=== PATIENT | male | born 1985 | race Caucasian/White ===

== ENCOUNTER 2021-11-25 01:01 | Outpatient (CLI) | payer MEDICAID, SELFPAY ==
[2021-11-25 14:46] LABS: Abs Immature Grans 0.03 10^3/uL (0.0-0.06); Absolute Basophil Count 0.03 10^3/uL (0.0-0.2); Absolute Eosinophil Count 0.33 10^3/uL (0.0-0.7); Absolute Lymphocyte Count 2.19 10^3/uL (1.2-3.4); Absolute Monocyte Count 0.42 10^3/uL (0.1-0.8); Absolute Neutrophil Count 4.61 10^3/uL (1.2-6.7); Basophils % 0.4; Eosinophils % 4.3; HCT 39.5 % (40.0-50.0); HGB 12.9 g/dL (13.5-17.5); Immature Grans % 0.4; Lymphocytes % 28.8; MCH 27.8 pg (27.0-33.0); MCHC 32.7 % (32.0-36.0); MCV 85 fL (80-95); MPV 8.6 fL (8.0-11.0); Monocytes % 5.5; Neutrophils % 60.6; Platelet Count 225 10^3/uL (130-400); RBC 4.64 10^6/uL (4.36-5.78); RDW 13.1 % (11.8-14.1); RDW-SD 40.4 fL; WBC 7.61 10^3/uL (4.4-10.8)
[2021-11-25 16:25] LABS: ALT 30 U/L (16-63); AST 17 U/L (15-37); Albumin 3.4 g/dL (3.4-5.0); Alkaline Phosphatase 71 U/L (46-116); Anion Gap 6.2 mmol/L (3-11); BUN 16 mg/dL (7-18); Bilirubin, Total 0.2 mg/dL (0.2-1.0); CO2 32.8 mmol/L (21.0-32.0); CREATININE 0.9 mg/dL (0.70-1.30); Calcium 8.7 mg/dL (8.5-10.1); Chloride 99 mmol/L (98-107); GGT 37 U/L (15-85); Glucose 108 mg/dL (74-106); Potassium 3.8 mmol/L (3.5-5.1); Sodium 138 mmol/L (136-145); Total Protein 7.7 g/dL (6.4-8.2)
[2021-11-25 16:41] LABS: Calculated LDL 117 mg/dL (<100); Cholesterol 192 mg/dL (<200); HDL Cholesterol 49 mg/dL (40-60); Triglyceride 134 mg/dL (<150)
[2021-11-26 08:50] LABS: Hepatitis B Surface Ab Positive (See Note)
[2021-11-26 08:57] LABS: Hepatitis B Surface Ag Negative (Negative)
[2021-11-26 09:32] LABS: HIV-1/2 Ag & Ab Screen Negative (Negative)
[2021-11-26 09:43] LABS: Hep B Core Antibody Negative (Negative)
[2021-11-26 09:49] LABS: Hepatitis C Ab w Rflx HCV PCR Negative (Negative)
[2021-11-26 10:07] LABS: Hep A Total Ab w Rflx IgM Negative (Negative)
== END 2021-11-25 01:02 | disposition home or self-care (01) ==
LOC: LBO 01:01
PROVIDERS: PCP Family Medicine; Visit Provider Nurse Practitioner Gerontology
DX: E78.9 Disorder of lipoprotein metabolism, unspecified; I10 Essential (primary) hypertension; E66.01 Morbid (severe) obesity due to excess calories; Z11.59 Encounter for screening for other viral diseases; Z11.4 Encounter for screening for human immunodeficiency virus [HIV]
CPT/HCPCS: 36415; 80053; 80061; 86704; 86706; 86709; 86803; 87340; 87389; 82977; 84443; 85025

== ENCOUNTER → 2021-11-28 00:42 | Outpatient (CLI) | payer MEDICAID, SELFPAY ==
--- OUTSIDE RECORDS SUMMARY | 2021-11-28 00:48 | XMS_ITS | Encounter Summary ---
:1985 Author Organization [facility] Address [address] [place] [address] Care Team Providers Name Role Phone Poly Gasca DNP Primary Care Provider Reason for Visit Reason Comments New Patient Visit leg ulcers pain previous DVT s venous instuff US first Consult (3 - 10 Business Days) - Specialty Report Received Specialty Diagnoses / Procedures Referred By Contact Refer red To Contact Vascular Surgery Diagnoses Cellulitis of both lower extremities Chronic venous stasis Poly Gasca, CHRISTIAN Mp5 Vas Surgery [address] [place] [address] [address] [facility] [address] [place], [place] [address] [place] [phone] Referral ID Status Reason Start Expiration Visits Visits Date Date Requested Authorized [id number] Specialty Specialty 11/08/2020 1 1 Report Services Received Required Encounter Details Date Type Department Care Team Description 01/31/2021 Office Visit [facility] Biju Bazzi III, Peter mai venous Vascular Surgery - insufficiency (Primary Main [place] [address] [facility]) [address] [place], [place] [id number] [place] [address] [facility] [address] [place] [address] (Wo rk) Social History Tobacco Use Types Packs/Day Years Used Date Current Every Day Smoker 1 26 Smokeless Tobacco: Never Used Alcohol Use Standard Drinks/Week Comments Not Currently 0 (1 standard drink = 0.6 oz pure alcoho l) Sex Assigned at Date Recorded Not on file documented as of this encounter Last Filed Vital Signs Vital Sign Reading Time Taken Comments Blood Pressure 150/90 01/31/2021 1106 EDT left Pulse 89 01/31/2021 1106 EDT Temperature - - Respiratory Rate - - Oxygen Saturation 98% 01/31/2021 1106 EDT Inhaled Oxygen Concentration - - Weight - - Height - - Body Mass Index - - documented in this encounter Progress Notes Makenna Natarajan - 01/31/2021 1100 EDT Vascular Surgery Consult Reason for consultation: Venous insufficiency HPI: Mr. Bojorquez is a 35-year-old gentleman who was referred to vascular surgery for evaluation of his bilateral chronic venous insufficiency. He has a past medical history notable for morbid morbid obesity,history of opioid use (clean for 5 years and on methadone), and tobacco use (approximately 1 pack/day for 26 years). His past surgical history is only notable for an open appendectomy as a child. He recently moved here from [facility]. He says that he has had swelling in his legs for a long timeand it was worse in [place]. He states that his ankles would often overflow his shoes. He was prescribed antibiotics and that did not appear to have a significant improvement. After moving to [facility] establishing care here, he was prescribed a course of Keflex that did decrease the erythema and swelling. He has tried diuretics for his lower extremity edema without improvement. He has tried his mother's compression socks but noted that they repeatedly fell down. He says he is quite active and is playing basketball. 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 He denies any feeling of significant heaviness or cramping in his legs. He sleepsflat in bed. He denies any symptoms of claudication. He has stopped smoking with Chantix for 6 months in the past but has currently undergone a significant lifestyle change with the moved to [place]. He is currently living in a hotel room with his motherand his girlfriend. He is motivated to stop smoking and attempt weight loss. He does note that he has had difficulty losing weight ever since he started methadone, but he is tapering down his methadoneuse in hopes it will improve his weight loss success. PMH History reviewed. No pertinent past medical history. PSH Past Surgical History: Procedure Laterality Date ??? APPENDECTOMY 2002 Social History Social History Tobacco Use ??? Smoking status: Current Every Day Smoker Packs/day: 1.00 Years: 26.00 Pack years: 26.00 ??? Smokeless tobacco: Never Used Substance Use Topics ??? Alcohol use: Not Currently Family history Family History Problem Relation Age of Onset ??? Kidney Disease Father ??? Diabetes Father Medications (Not in a hospital admission) Allergies No Known Allergies Review of Systems: Review of Systems Constitutional: Negative. Negative for chills, fever and weight loss. HENT: Negative. Eyes: Negative. Respiratory: Some shortness of breath when going uphill Cardiovascular: Positive for leg swelling. Gastrointestinal: Negative. Genitourinary: Negative. Musculoskeletal: Negative. Skin: Positive for rash. 2 episodes of cellulitis of bilateral legs Neurological: Negative. Endo/Heme/Allergies: Negative. Psychiatric/Behavioral: Negative. Objective/Physical Exam: VS: BP (!) 150/90 Comment: left Pulse 89 SpO2 98% Exam: General: alert, appropriate, no acute distress, obese CV: regular rate and rhythm Resp: clear to auscultation, non-labored breathing Abd: soft, nontender, LLQ faint surgical scar Extr: Bilateral venous stasis changes to legs. 1+ pitting edema of ankles. Palpable DP pulses bilaterally. 3-5 small ulcers of both anterior/medial legs. Varicose veins visible in bilateral thighs. Imaging: Right Saphenous Venous The right saphenofemoral junction had no significant reflux.The mid thigh segment of the right greater saphenous vein had no significant reflux.The knee segment of the great saphenous vein had 0.5 to 2seconds of reflux.The proximal calf segment of the right small saphenous vein had no significant reflux. Right Lower Venous Other All other visualized veins in the right lower extremity demonstrated normal compressibility with no intraluminal echoes present. Left Saphenous Venous The left saphenofemoral junction had more than 2 seconds of reflux. The left greater saphenous vein in the mid thigh had more than 2 seconds of reflux. The knee segment of the great saphenous vein had more than 2 seconds of reflux. The proximal calf segment of the left small saphenous vein had no significant reflux. Left Lower Venous Other All other visualized veins in the left lower extremity demonstrated normal compressibility with no intraluminal echoes present. Assessment 35 yo M with hx of opioid dependence (on methadone x 4 years, clean x 5 yrs), morbid obesity, and tobacco dependence, who presents with chronic venous insufficiency and has not attempted compression therapy Problems/Plan: Counseled him to lose weight, stop smoking, and wear compression stockings. He was given an Rx for compression socks and told to elevate his legs when he is sitting at home. -return to clinic in 6 months -call the office if he develops more or bigger wounds on his legs Teressa Natarajan MD Vascular Surgery Fellow 01/31/21 11:59 Pager [phone] Attestation statement: I performed or was present during the barrios or critical portions of the visit and participated in the management of the patient. I agree with the findings and plan of care documented in the resident's/fellow's note. 35 yo male with BLE chronic venous insufficiency and evidence of bilateral GSV reflux on venous study. Recommend weight loss, extremity elevation and compression stocking therapy. May benefit from endovenous ablation therapy in the future. Follow up in clinic in 6 months. documented in this encounter Plan of Treatment Not on filedocumented as of this encounter Visit Diagnoses Diagnosis Chronic venous insufficiency - Primary Unspecified venous (peripheral) insuffic iency documented in this encounter Care Teams Residential Roofer Helper Relationship Specialty Start Date End Date Poly Gasca DNP PCP - General Family Medicine - Primary 09/18/[address] [place] [address] [address] [place] [address] documented as of this encounter
--- OUTSIDE RECORDS SUMMARY | 2021-11-28 00:48 | XMS_ITS | Encounter Summary ---
:1985 Author Organization [facility] Address [address] [place] [address] Care Team Providers Name Role Phone GascaPoly russell Brittany GONZALES Primary Care Provider Encounter Details Date Type Department Care Team Description 11/25/2021 Lab Requisition [facility] Outr Resulting Lab, Pathology & Laboratory Provider [facility] [address] [place] [address] Social History Tobacco Use Types Packs/Day Years Used Date Never Assessed Sex Assigned at Date Recorded Not on file documented as of this encounter Plan of Treatment Not on filedocumented as of this encounter Procedures Procedure Name Priority Date/Time Associated Comments Diagnosis HIV 1/2 ANTIGEN AND Routine 11/25/2021 14:36 Resu lts for this ANTIBODY, 4TH EDT procedure are in GENERATION the results section. documented in this encounter Results HIV 1/2 ANTIGEN AND ANTIBODY, 4TH GENERATION (11/25/2021 14:36 EDT) HIV 1 and 2 NegativeComment: If Negative [facility] Antibody/p24 acute HIV-1 LABORATORY Antigen, 4th infection is SERVICES Generation suspected in a high risk patient, submit plasma specimen for HIV-1 RNA quantitation test. Specimen Blood - Venous blood (substance) Narrative [facility] SERVICES - 11/26/2021 9:27 EDT Fourth Generation assay performed on the Siemens Centaur XPT. Performing Organization Address City/State/ZIP Code Phon e Number [facility] [address] [place] [address] SERVICES documented in this encounter Visit Diagnoses Not on filedocumented in this encounter Care Teams Actionscript Developer Relationship Specialty Start Date End Date Poly Gasca, CHRISTIAN PCP - General Family Medicine - Primary 09/18/[address] [place] [address] 2 [place] [address] documented as of this encounter
--- OUTSIDE RECORDS SUMMARY | 2021-11-28 00:48 | XMS_ITS | Encounter Summary ---
:1985 Author Organization [facility] Address [address] [place] [address] Care Team Providers Name Role Phone Poly Gasca DNP Primary Care Provider Reason for Referral Consult (3 - 10 Business Days) - Specialty Report Received Specialty Diagnoses / Procedures Referred By Contact Refer red To Contact Vascular Surgery Diagnoses Cellulitis of both lower extremities Chronic venous stasis Poly Gasca, CHRISTIAN Mp5 Vas Surgery [address] [facility] [address] [facility] [address] [place] [address] [place] [address] Referral ID Status Reason Start Expiration Visits Visits Date Date Requested Authorized [id number] Specialty Specialty 11/08/2020 1 1 Report Services Received Required Question Answer Reason for Request: recurrent cellulitis of bila teral lower extremities, chronic venous stasis Reason for Visit Reason Comments Establish Care Encounter Details Date Type Department Care Team Description 11/08/2020 Telemedicine [facility] - Poly Gasca En counter to establish care (Primary Dx); [facility] Family Medicine DNP Chronic venous stasis; - [place] [address] Cellulitis of both lower extremities; [address], [address] [place] [address] [place] [phone] Social History Tobacco Use Types Packs/Day Years Used Date Current Every Day Smoker 1 26 Smokeless Tobacco: Never Used Tobacco Cessation: Ready to Quit: No; Co unseling Given: Yes Alcohol Use Standard Drinks/Week Comments Not Currently 0 (1 standard drink = 0.6 oz pure alcoho l) Sex Assigned at Date Recorded Not on file documented as of this encounter Ordered Prescriptions Prescription Sig Dispensed Refills Start Date End Date hydroCHLOROthiazide Take 1 Tab by 30 Tab 2 11/08/2020 (HYDRODIURIL) 25 mg tablet mouth every morning. cephalexin (KEFLEX) 500 mg Take 1 Cap by 40 Cap 0 202011/18/2020 capsule mouth 4 times daily for 10 days. documented in this encounter Progress Notes Poly Gasca, DNP - 11/08/2020 0915 EDT [facility] Video Visit APSO Assessment & Plan: 1. Encounter to establish care Patient presents to establish care. Moved to [place] from [place] in March. Will follow- up in the office forroutine physical exam, updated vitals and labs. 2. Chronic venous stasis 3. Cellulitis of both lower extremities New to me. Patient reports a history of recurrent cellulitis in bilateral lower extremities. He states that this was first evaluated and treated in [place] prior to moving to [place] in March. Upon moving[place], he was seen in the ED at [facility] where cellulitis was cultured and grew pansensitive staph. He was treated with PO Keflex x 10-days and then was seen at [facility] where he was given another 7-days of ABX. He reports that after completing the Keflex, sxs resolved for about one month and just this past week, legs started to look red again. Today, he denies swelling, warmth, and pain in bilaterallower extremities but does note the formation of small ulcerations on bilateral ankles. He denies systemic signs of infection. Patient is at an increased risk of infection due to morbid obesity and smoking history. We will start another course of antibiotics and discussed the importance of compressionand elevation as well as tobacco cessation. Will also start a low dose of hydrochlorothiazide. Advised patient to closely monitor for signs of worsening infection - swelling, increased redness, warmth,pain, fever, or chills - and informed him that he should go to the ED if any of these sxs develop. Patient expressed understanding of and agrees with plan. - AMB CONS/FOLLOW UP VASCULAR SURGERY 4. Tobacco dependence Counseled and offered resources. Patient has a 48-bicr-pbqs history and continues to smoke 1 ppd. Discussed contribution of smoking to chronic venous stasis and delayed wound healing. Patient in pre-contemplative stage of change and not ready to quit at this time, encouraged to reach out for additional support, as needed. Return in about 1 month (around 12/08/2020) for routine physical exam, OV . Today's visit was provided through telemedicine video conferencing: The location of the patient: Home The location of the provider: Office Verbal consent: The concept of ???Telemedicine?? has been described to the patient.Patient has been informed of theanticipated benefits and possible risks. Patient understands the information provided regarding telemedicine, has had the opportunity to ask questions about this information, and all questions have been answered to patient???s satisfaction. Patient consents for the use of telemedicine in his/her medical care and authorizes the transmission of any relevant medical information to providers and their staff involved in patient???s medical or mental health care. Verbal consent obtained by myself or auxiliary staff: yes. Subjective: Chief Complaint(s): Establish Care HPII have reviewed current problem list and current medications. Claudia presents to establish care. He moved from the [place], [place] to [place] in March. Living with his fianceMray Jo and his mother. Moved to [place] to be closer to 3 kids, ages 6, 13, and 18 who live with their mom in [place]. He is currently in between housing, awaiting rental in [place], now living [facility] [place].Works for [employer]. PMH includes substance abuse, in remission, obesity, and chronic venous stasis. He goes to [facility] in [place], 3x/week, is currently on dose of 55 mg Methadone and working to taper off. Has gained significant amount of weight - about 130 lbs over the 3+ years that he has been onMethadone, went from 250 to 380 lbs His main concern today is recurring cellulitis of bilateral lower extremities. He was seen for this first in [place] prior to moving to [place] and was treated with oral ABX and reports that sxs improved, however, returned 2-weeks later In Jul, he was seen at [facility] ED and was treated with an IV dose of of Cephazolin and prescribed PO Keflex to take X 10 days He was then seen [facility], after completion of ABX course, where he was given another week of Keflex. He reports that after completion of ABX, sxs resolved, and legs looked okay for about 1-month. He reports that this past weeks, legs are starting to look a little red again No swelling, pain, or warmth, however, there are two small ulcers forming right above the ankle on both legs He denies systemic signs of infection - fever, chills Objective: Examination: There were no vitals taken for this visit. Physical Exam Constitutional: General: He is not in acute distress. Appearance: He is obese. He is not ill-appearing. Pulmonary: Effort: Pulmonary effort is normal. Skin: Comments: Unable to visualize LE due to poor video quality Neurological: General: No focal deficit present. Mental Status: He is alert. Psychiatric: Mood and Affect: Mood normal. Behavior: Behavior normal. Thought Content: Thought content normal. Data reviewed with patient: recent Emergency Room visit summary from [facility] reviewed: Jul encounter for cellulitis bilateral LE x [address] [facility] visit summary reviewed, summary: cellulitis LE August 2020. A total of 40 minutes was spent on this encounter on the day of this encounter. The following individuals and their role did participate in today's encounter visit: Provider: Poly Gasca DNP Patient documented in this encounter Plan of Treatment Scheduled Referrals Name Type Priority Associated Diagnoses Order S chedule AMB CONS/FOLLOW UP Outpatient Referral Routine Cellulitis of b oth Ordered: VASCULAR SURGERY lower extremiti es 11/08/2020 Chronic venous stasis documented as of this encounter Visit Diagnoses Diagnosis Encounter to establish care - Primary Other reasons for seeking consultation Chronic venous stasis Cellulitis of both lower extremities Tobacco dependence Tobacco use disorder documented in this encounter Discontinued Medications Medication Sig Discontinue Reason Start Date End Date cephalexin (KEFLEX) 500 TAKE 1 CAPSULE BY Therapy completed 021 11/08/2020 mg capsule MOUTH EVERY 6 HOURS. documented as of this encounter Historical Medications This list may reflect changes made after this encounter. Medication Sig Dispensed Refills Start Date End Date methadone HCl (METHADONE Take 55 mg by mouth. 0 ORAL) added in this encounter Care Teams Synthetic Gem Press Operator Relationship Specialty Start Date End Date Poly Gasca, CHRISTIAN PCP - General Family Medicine - Primary 09/18/[address] [place] [phone] documented as of this encounter
--- OUTSIDE RECORDS SUMMARY | 2021-11-28 00:48 | XMS_ITS | Encounter Summary ---
:1985 Author Organization [facility] Address [address] [place] [address] Care Team Providers Name Role Phone Unavailable Primary Care Provider Unavailable Encounter Details Date Type Department Care Team Description 07/24/2020 Results Only [facility] Tristan Velazquez MD Lab - Main [place] [address] [address] [place] [address] [phone] Social History Tobacco Use Types Packs/Day Years Used Date Never Assessed Sex Assigned at Date Recorded Not on file documented as of this encounter Plan of Treatment Not on filedocumented as of this encounter Procedures Procedure Name Priority Date/Time Associated Comments Diagnosis ROUTINE [facility] Routine 07/24/2020 18:00 R esults for this EST procedure are i n the results section. SPEC W/O ORDERS - [facility] Routine 07/24/2020 17:45 R esults for this EST procedure are i n the results section. LACTIC ACID SEPSIS Routine 07/24/2020 17:45 Resul ts for this REFLEX - [facility] EST procedure are in the results section. COMPLETE BLOOD COUNT Routine 07/24/2020 17:45 Res ults for this WITH DIFFERENTIAL EST procedure are in (AUTO) the results section. C REACTIVE PROTEIN Routine 07/24/2020 17:45 Resul ts for this EST procedure are i n the results section. MAGNESIUM Routine 07/24/2020 17:45 Results for this EST procedure are i n the results section. COMPREHENSIVE Routine 07/24/2020 17:45 Results fo r this METABOLIC PANEL (CMP) EST proced ure are in the results section. documented in this encounter Results ROUTINE CULTURE - [facility] (07/24/2020 18:00 EST) Culture The mecA gene product was NOT detected in this c oagulase [facility] positive Staph isolate. It is SUSCEPTIBLE to oxacillin , [facility] cephalosporins and other beta lactam antibiotics. Swab Source/Specimen Description: Right pretibial blis ter STAPHYLOCOCCUS SP STAPHYLOCOCCUS SP [facility] COAG POSITIVE - [facility] COAG POS [facility] QUANT - [facility] GROUP B STREPTOCOCCUS SXB [facility] - [facility] QUANT - [facility] Specimen Leg Narrative [facility] - 021 9:56 EST Swab Source/Specimen Description: Right pretibial blister Organism Antibiotic Method Susceptibility Staphylococcus sp coag Azithromycin GRAM POSITIVE Susceptib le pos SUSCEPTIBILITY - CV Staphylococcus sp coag Clindamycin GRAM POSITIVE <=0.25: S usceptible pos SUSCEPTIBILITY - CV Staphylococcus sp coag Cefpodoxime GRAM POSITIVE Susceptib le pos SUSCEPTIBILITY - [facility] Staphylococcus sp coag Cefazolin GRAM POSITIVE Susceptib le pos SUSCEPTIBILITY - [facility] Staphylococcus sp coag Erythromycin GRAM POSITIVE <=0.25: S usceptible pos SUSCEPTIBILITY - CV Staphylococcus sp coag Levofloxacin GRAM POSITIVE 0.25: Radha ceptible pos SUSCEPTIBILITY - [facility] Staphylococcus sp coag Oxacillin GRAM POSITIVE 0.5: Susc eptible pos SUSCEPTIBILITY - [facility] Staphylococcus sp coag Trimethoprim-Sulfame GRAM POSITIVE <=10 : Susceptible pos thoxazole SUSCEPTIBILITY - CV Staphylococcus sp coag Tetracycline GRAM POSITIVE <=1: Susc eptible pos SUSCEPTIBILITY - [facility] Staphylococcus sp coag Vancomycin GRAM POSITIVE <=0.5: Andujar sceptible pos SUSCEPTIBILITY - [facility] Comment: Tetracycline susceptible Coa g positive staph is also susceptible to doxycycline a nd minocycline. Comment: LEG ISSUES Performing Organization Address City/State/ZIP Code Phon e Number [facility] [address] [place] [address] SPEC W/O ORDERS - [facility] (07/24/2020 17:45 EST) SPEC W/O ORDERS - SEE NOTE [facility] Comment: [facility] ?Emergency Room Specimen(s) without Orders These specimens will be discarded in 4 hours: 1 SET BLOOD CULTURES Specimen Narrative [facility] - 021 19:03 EST TWO BLOOD CULTURE BOTTLES (1 SET) Performing Organization Address [facility]/ZIP Code Phon e Number [facility] [address] [place] [address] (ABNORMAL) MAGNESIUM (07/24/2020 17:45 EST) Pathologist Sig nature Magnesium 1.50 (L) 1.7 - 2.8 mg/dL [facility] R LAB Specimen Performing Organization Address [facility]/ZIP Code Phon e Number [facility] [address] [place] [address] (ABNORMAL) C REACTIVE PROTEIN (07/24/2020 17:45 EST) Pathologist Sig nature C-Reactive Protein 24.6 (H) <10.0 mg/L [facility] Specimen Performing Organization Address City/[facility]/ZIP [facility] Phon e Number [facility] [address] [place] [address] (ABNORMAL) COMPREHENSIVE METABOLIC PANEL (CMP) (07/24/2020 17:45 EST) ALBUMIN - [facility] 3.6 3.4 - 4.9 [facility] g/dL [facility] ALKALINE 73 38 - 126 U/L [facility] PHOSPHATASE [facility] BILIRUBIN TOTAL 0.5 0.2 - 1.3 [facility] mg/dL [facility] BUN - [facility] 11 10 - 26 mg/dL [facility] CALCIUM - [facility] 8.8 8.5 - 10.5 [facility] mg/dL [facility] Chloride 100 96 - 110 [facility] mmol/L [facility] CO2 Total 35 (H) 21 - 32 mEq/L [facility] CREATININE 0.75 0.66 - 1.25 [facility] mg/dL [facility] eGFR >60 [facility] Comment: [facility] Chronic renal impairment is defined as GFR <60 Multiply result by 1.210 for patients . Anion Gap 5 0 - 18 [facility] GLUCOSE - [facility] 90 70 - 100 [facility] mg/dL [facility] Potassium 3.7 3.5 - 5.0 [facility] mEq/L [facility] Sodium 140 136 - 145 [facility] mEq/L [facility] TOTAL PROTEIN - 7.2 6.2 - 8.2 [facility] gm/dL [facility] SGOT/AST - [facility] 22 17 - 59 U/L [facility] SGPT/ALT - [facility] 31 0 - 50 U/L [facility] Specimen Performing Organization Address City/[facility] Code Phon e Number [facility] [address] [place] [address] LACTIC ACID SEPSIS REFLEX - [facility] (07/24/2020 17:45 EST) Pathologist Sig nature LACTIC ACID - [facility] 0.7 <2.0 mmol/L [facility] Specimen Performing Organization Address [facility] Phon e Number [facility] [address] [place] [address] (ABNORMAL) COMPLETE BLOOD COUNT WITH DIFFERENTIAL (AUTO) (07/24/2020 17:45 EST) Pathologist Sig nature ABSOLUTE NEUTROPHIL 5.6 2.2 - 8.85 [facility] COUN - [facility] 10e3/uL [facility] BASO # - CV 0.03 0.01 - 0.11 [facility] 10e/uL [facility] BASO % - [facility] 0 0 - 2 % [facility] EOS # - [facility] 0.47 0.03 - 0.61 [facility] 10e3/ul [facility] EOS % - [facility] 6 (H) 0 - 5 % [facility] GRAN % - [facility] 69.6 40 - 80 % [facility] HEMATOCRIT - [facility] 38.4 (L) 39.5 - 50.2 % [facility] HEMOGLOBIN - [facility] 12.2 (L) 13.8 - 17.3 [facility] g/dl [facility] IG# - CV 0.03 0 - 0.7 10e3/uL [facility] IG% - [facility] 0.4 0 - 0.9 % [facility] LYMPH # - CV 1.5 1.09 - 3.3 [facility] 10e3/ul [facility] LYMPH% - [facility] 18.7 (L) 20 - 40 % [facility] MEAN CORPUSCULAR HGB 26.5 (L) 27.6 - 33.0 pg [facility] ME D - [facility]ENTER LAB MEAN CORPUSCULAR HGB 31.8 (L) 32.8 - 36.4 [facility] CONC [facility] g/dL CENTER LAB MEAN CELL VOLUME - 83.5 81 - 95 fl [facility] MONO # [facility] 0.4 0.1 - 0.8 [facility] 10e3/uL [facility] MONO% [facility] 5.1 0 - 12 % [facility] PLATELET COUNT 235 141 - 377 [facility] 10e3/ul [facility] RED BLOOD COUNT - 4.60 4.36 - 5.78 [facility] 10e6/ul [facility] RED CELL DISTRI WIDTH 14.1 <14.2 % [facility] WHITE BLOOD COUNT - 8.1 4.0 - 10.4 [facility] 10e3/ul [facility] Specimen Performing Organization Address City/State/ZIP Code Phon e Number [facility] [address] [place] [address] documented in this encounter Visit Diagnoses Not on filedocumented in this encounter
--- OUTSIDE RECORDS SUMMARY | 2021-11-28 00:48 | XMS_ITS | Encounter Summary ---
:1985 Author Organization [facility] Address [address] [place] [address] Care Team Providers Name Role Phone Poly Gasca DNP Primary Care Provider Reason for Visit Reason Onset Date Comments Follow-up 11/08/2020 Encounter Details Date Type Department Care Team Description 11/08/[address] [facility] Poly Gasca DNP Follow-up Family Medicine - [place] [address] [facility] [address] [facility] [place], [place] [id number] [place] [phone] (Wo rk) Social History Tobacco Use Types Packs/Day Years Used Date Current Every Day Smoker 1 26 Smokeless Tobacco: Never Used Alcohol Use Standard Drinks/Week Comments Not Currently 0 (1 standard drink = 0.6 oz pure alcoho l) Sex Assigned at Date Recorded Not on file documented as of this encounter Miscellaneous Notes Telephone Encounter - Poly Gasca DNP - 11/15/2020 1202 EDT Noted thank you elephone Encounter - Malu Prieto RN - 11/15/2020 1142 EDT Pt states he is 1.5 days into his abx, he was unable to start sooner due to transportation issues. Pt states the reddish purple on his legs is lightening up slightly. Pt states he has not had any swelling at all so he has not started the hydrochlorothiazide. Pt aware to stephanie the office if his SXS do not improve or if they get worse. FYI to RG. Telephone Encounter - Felecia Mccormick RN - 11/11/2020 0851 EDT I tried to reach marine on his cell phone and the mailbox was full and I was unable to leave a message. I then tried the home phone and it was a VM of a woman. I just left a message stating we were trying to to reach Chris and to please have him call back and ask to speak to a nurse. elephone Encounter - Poly Gasca DNP - 11/08/2020 1653 EDT Please call Frank on Saturday 11/11 and check in on cellulitis - if redness/ swelling of LEshas increased, needs to be seen thanks! documented in this encounter Plan of Treatment Not on filedocumented as of this encounter Visit Diagnoses Not on filedocumented in this encounter Care Teams Institute Director Relationship Specialty Start Date End Date Poly Gasca DNP PCP - General Family Medicine - Primary 09/18/[address] [place] [phone] documented as of this encounter
--- OUTSIDE RECORDS SUMMARY | 2021-11-28 00:48 | XMS_ITS | Encounter Summary ---
:1985 Author Organization [facility] Address [address] [place] [address] Care Team Providers Name Role Phone Poly Gasca DNP Primary Care Provider Reason for Visit Reason Onset Date Comments Leg Swelling 07/23/2021 PT Referral: Lymphed jazlyn. Encounter Details Date Type Department Care Team Description 08/01/2021 Telephone [facility] Libia Johnson RN Leg Swelling (PT Rehabilitation Therapy - [address] [facility] Referral: [place] [address] Lymphedema. ) [address] [place], [place] [id number] Social History Tobacco Use Types Packs/Day Years Used Date Current Every Day Smoker 1 26 Smokeless Tobacco: Never Used Alcohol Use Standard Drinks/Week Comments Not Currently 0 (1 standard drink = 0.6 oz pure alcoho l) Sex Assigned at Date Recorded Not on file documented as of this encounter Miscellaneous Notes Telephone Encounter - Yahaira Rader RN - 08/19/2021 1017 EDT Updated via Merced Johnson RN at lymphedema clinic that referral has been closed. Unable to reach patient as mailbox is full and could not leave messages. (See Epic encounter from escrow representative) Patient was last seen in Vascular Surgery 07/23/21 and has numerous no show or cancellations. Patient has appointment scheduled with our SUPERVISOR MARBLE tomorrow 08/20/21. Will assess Left leg at that time. elephone Encounter - Gloria Johnson RN - 08/01/2021 5358 EST [facility], Rehabilitation Therapy Center [facility], [address] [place] [id number] / Date: 08/01/2021 Chris Bojorquez was contacted by this nurse today to educate him about Lymphedema treatment and to discuss current medical problems. LVM ([phone]) Home phone. Mobile ) mailbox full, cannot accept messages. 08/19/2021: Home & Mobile phone numbers: Mailbox full and cannot accept any messages at this time. IBM: Yahaira Rader RN. Note: [facility] (08/20/20) severely morbidly obese. No weight recorded in EHR. No recorded weight or height available. Medical History: Office visit, 07/23/2021, Biju Bazzi MD: Seen in clinic today earlier than originally scheduled due to worsening leg swelling, discoloration and a new ulcer. He has known chronic venous insufficiency in bilateral greater saphenous veins, left worse than right. He has been noncompliant with his compression stockings. It is unclear how his recent fall contributed to worsening symptoms. Nevertheless, I recommended application of a Unna boot to the left leg and compression stocking tothe right leg. We will arrange weekly Unna boot dressing changes in clinic. I emphasized the importance of ongoing compression therapy and extremity elevation and provided a prescription for compression stockings 20 to 30 mmHg. Additionally, I recommended evaluation at the lymphedema clinic. I will see him back in approximately 4 weeks at which time we can evaluate utility of endovenous ablation therapy. He is agreeable to this plan. 07/31/21: Yahaira Rader RN: Cancelled appointment for unna boot change (07/31/2021). Last Unna boot dressing change (07/23/2021). Advised patient to take unna boot dressing off, shower, cover wound with a bandage (every day), and put (new today) compression stocking on. Next scheduled unna boot dressing change, 08/04/2021. [facility] (08/20/2020): BLE cellulitis, did not take antibiotics prescribed. New rx: Keflex(500 mg) 4 times a day x 7 days. Medical problems that may require additional monitoring during treatment: Cardiopulmonary response to manual lymphedema drainage (MLD) and compression. Medical information needed prior to the start of lymphedema treatment: Labs: (EHR Labs, 07/2020). May require all labs if BMI > 32. Echocardiogram: EHR: No record of echo. Required for all patients with BMI >/= 32. Estimated systolic pulmonary artery pressure: Doppler Ultrasound: (01/31/2021) Reflux noted in the bilateral great saphenous veins. No reflux noted in the deep and short saphenous veins bilaterally. No evidence of venous thrombosis in the bilateral lower extremities. Insurance Information: Referral: [facility] (07/23/2021) Referring Provider: Biju Bazzi MD PCP: Poly Gasca DNP Diagnosis: 1) Chronic Venous Insufficiency 2) Lymphedema. [facility] [place] Secondary Insurance: None listed. Note: 08/01/2021 (LVM) home phone no return phone call. 08/19: Unable to leave message on home/mobile phone due to mailbox full. Patient cancelled (07/31/21) & NOS (08/04/2021, 08/05/21, 08/13/21). with, Yahaira Rader RN, or appointment,08/20/21 (1030) or appointment with Dr Bazzi, 08/27/2021 (1230) due to mailbox (home/mobile) full and could not leave message. Referral for lymphedema has been closed. IBM: Referring provider, Biju Bazzi MD, regarding the above. Gloria Johnson, RN, CRRN Staff Marine Surveyor, YOLIS documented in this encounter Plan of Treatment Not on filedocumented as of this encounter Visit Diagnoses Not on filedocumented in this encounter Care Teams Digital Marketing Manager Relationship Specialty Start Date End Date Poly Gasca DNP PCP - General Family Medicine - Primary 09/18/[address] [place] [phone] documented as of this encounter
--- OUTSIDE RECORDS SUMMARY | 2021-11-28 00:48 | XMS_ITS | Encounter Summary ---
:1985 Author Organization [facility] Address [address] [place] [address] Care Team Providers Name Role Phone Poly Gasca DNP Primary Care Provider Reason for Visit Reason Comments Leg Pain Encounter Details Date Type Department Care Team Description 08/20/2020 Walk-In [facility] - Karishma Thomas Cell ulitis of lower [facility] - DUNIA extremity, unspecified [place] [address] laterality (Primary Dx) [address] [place] [address] [address] [phone] [place] [address] (Wo rk) Social History Tobacco Use Types Packs/Day Years Used Date Never Assessed Sex Assigned at Date Recorded Not on file documented as of this encounter Last Filed Vital Signs Vital Sign Reading Time Taken Comments Blood Pressure 132/92 08/20/2020 1605 EDT Pulse 110 08/20/2020 1605 EDT Temperature 37.1 ??C (98.7 ??F) 08/20/2020 1605 EDT Respiratory Rate 22 08/20/2020 1605 EDT Oxygen Saturation 98% 08/20/2020 1605 EDT Inhaled Oxygen Concentration - - Weight - - Height - - Body Mass Index - - documented in this encounter Patient Instructions Patient InstructionsKarishma Thomas PA-C - 08/20/2020 16:00 EDT Images from the original note were not included. [facility] Patient Instructions Cellulitis: Care Instructions Your Care Instructions Cellulitis is a skin infection caused by bacteria, most often strep or staph. It often occurs after a break in the skin from a scrape, cut, bite, or puncture, or after a rash. Cellulitis may be treated without doing tests to find out what caused it. But your doctor may do tests, if needed, to look for a specific bacteria, like methicillin-resistant Staphylococcus aureus (MRSA). The doctor has checked you carefully, but problems can develop later. If you notice any problems or new symptoms, get medical treatment right away. Follow-up care is a barrios part of your treatment and safety. Be sure to make and go to all appointments, and call your doctor if you are having problems. It's also a good idea to know your test results and keep a list of the medicines you take. How can you care for yourself at home? ?? Take your antibiotics as directed. Do not stop taking them just because you feel better. You needto take the full course of antibiotics. ?? Prop up the infected area on pillows to reduce pain and swelling. Try to keep the area above the level of your heart as often as you can. ?? If your doctor told you how to care for your wound, follow your doctor's instructions. If you didnot get instructions, follow this general advice: ? Wash the wound with clean water 2 times a day. Don't use hydrogen peroxide or alcohol, which can slow healing. ? You may cover the wound with a thin layer of petroleum jelly, such as Vaseline, and a nonstick bandage. ? Apply more petroleum jelly and replace the bandage as needed. ?? Be safe with medicines. Take pain medicines exactly as directed. ? If the doctor gave you a prescription medicine for pain, take it as prescribed. ? If you are not taking a prescription pain medicine, ask your doctor if you can take an upvd-auz-rthrvpx medicine. To prevent cellulitis in the future ?? Try to prevent cuts, scrapes, or other injuries to your skin. Cellulitis most often occurs where there is a break in the skin. ?? If you get a scrape, cut, mild burn, or bite, wash the wound with clean water as soon as you can to help avoid infection. Don't use hydrogen peroxide or alcohol, which can slow healing. ?? If you have swelling in your legs (edema), support stockings and good skin care may help prevent leg sores and cellulitis. ?? Take care of your feet, especially if you have diabetes or other conditions that increase the risk of infection. Wear shoes and socks. Do not go barefoot. If you have athlete's foot or other skin problems on your feet, talk to your doctor about how to treat them. When should you call for help? Call your doctor now or seek immediate medical care if: ? You have signs that your infection is getting worse, such as: ? Increased pain, swelling, warmth, or redness. ? Red streaks leading from the area. ? Pus draining from the area. ? A fever. ? You get a rash. Watch closely for changes in your health, and be sure to contact your doctor if: ? You do not get better as expected. Where can you learn more? Go to [email or web address] or log into your [employer] account at [email or web address] Enter X309 in the search box to learn more about Cellulitis: Care Instructions. Current as of: December 07, 2019?Content Version: 12.6 ?? [employer]. Care instructions adapted under license by [facility]. If you have questions about a medical condition or this instruction, always ask your healthcare professional. [employer] disclaims any warranty or liability for your use of this information. documented in this encounter Ordered Prescriptions Prescription Sig Dispensed Refills Start Date End Date cephalexin (KEFLEX) 500 mg Take 1 Cap by mouth 28 Cap 0 08/20/2020 08/27/2020 capsuleIndications: 4 times daily for 7 Cellulitis of lower days. extremity, unspecified laterality documented in this encounter Progress Notes Karishma Thomas PA-C - 08/20/2020 1600 EDT [facility] Chief Complaint(s): Leg Pain HPI: Patient is pending new appointment with his PCP, patient has history of cellulitis of bilateral lower extremities, patient reports he was given an antibiotic when he was in [place], patient admittedlysays he did not consistently take the antibiotic and the redness in his bilateral lower extremities has increased, patient reports he was recently worked up in [place] ruling out DVTs, blood clots, patient reports blood cultures were negative, there are no patient records of this hospital work-up to review only that of the patient history, no fevers, patient was supposed to see vascular surgeon but t his has not occurred, prior notes were reviewed ROS: Review of Systems Constitutional: Negative for fever. Respiratory: Negative for cough. Musculoskeletal: Bilateral lower extremity cellulitis, did not take the antibiotic as prescribed, patient is pendingappointment with new PCP Objective: Examination: Vitals: Pulse (!) 110 Temp 37.1 ??C (98.7 ??F) Resp 22 SpO2 98% Physical Exam Vitals signs reviewed. Constitutional: General: He is not in acute distress. Appearance: He is not ill-appearing. Comments: Patient is severely morbidly obese Cardiovascular: Rate and Rhythm: Tachycardia present. Pulmonary: Effort: Pulmonary effort is normal. No respiratory distress. Musculoskeletal: General: Swelling present. Right lower leg: Edema present. Left lower leg: Edema present. Comments: Patient anterior lower extremities are erythematous and have mild pitting edema, patient reports his pitting edema is his baseline, there are some crusted sores noted, skin is moderately dry, no drainage, patient is ambulatory without assistance, skin is mildly warm to touch around the anterior lower extremities Neurological: Mental Status: He is alert. Procedures Assessment & Plan: 1. Cellulitis of lower extremity, unspecified laterality - cephalexin (KEFLEX) 500 mg capsule; Take 1 Cap by mouth 4 times daily for 7 days. Dispense: 28 Cap; Refill: 0 We will give another week of Keflex, discussed with patient to take the medication consistently, discussed that the antibiotics still remain in our system even after the length of treatment is complete, recommend moisturize the area, patient inquired how to make the circulation better in his lower extr emities, discussed weight loss and quitting smoking, patient will follow up with new PCP when scheduled, patient verbalized understanding and agrees to POC Faisal Woods RN - 08/20/2020 1600 EDT CC: Dx'd with Cellulitis Bilateral legs, several months, is concerned that problem will return and wants antibiotics, cannot get into PCP until September. Covid Screening: In the last 72 hours, has the patient had: Shortness of breath, cough, sore throat, nasal congestion, runny nose, fever/chills/body aches, headache, or loss of taste or smell without a reasonable alternative diagnosis*? (If yes, assign patient to [facility] schedule). NO If no, have they been advised to quarantine due to COVID exposure (<6ft for > 15 mins in 24hr period) or due to travel? (If no, see in [facility]). NO NO Travel. documented in this encounter Plan of Treatment Not on filedocumented as of this encounter Visit Diagnoses Diagnosis Cellulitis of lower extremity, unspecifi ed laterality - Primary documented in this encounter Historical Medications This list may reflect changes made after this encounter. Medication Sig Dispensed Refills Start Date End Date cephalexin (KEFLEX) 500 TAKE 1 CAPSULE BY 0 07/2611/08/2020 mg capsule MOUTH EVERY 6 HOURS. added in this encounter Care Teams Manager Asset Relationship Specialty Start Date End Date Poly Gasca, DNP PCP - General Family Medicine - Primary 08/16/[address] [place] [phone] documented as of this encounter
--- OUTSIDE RECORDS SUMMARY | 2021-11-28 00:48 | XMS_ITS | Encounter Summary ---
:[address] [facility] Address [address] [place] [address] Care Team Providers Name Role Phone Unavailable Primary Care Provider Unavailable Encounter Details Date Type Department Care Team Description 03/28/2020 Results Only [facility] Callie Charles MD [facility] [address] [place] [address] [place] [address] [address] [place] [address] (Wo rk) Social History Tobacco Use Types Packs/Day Years Used Date Never Assessed Sex Assigned at Date Recorded Not on file documented as of this encounter Plan of Treatment Not on filedocumented as of this encounter Procedures Procedure Name Priority Date/Time Associated Diagnosis Comme nts COVID-19 Routine 03/28/2020 10:51 EDT Results for this procedure are i n the results section . documented in this encounter Results COVID-19 (03/28/2020 10:51 EDT) [facility] Not Detected [facility] Comment: MED CENTER LAB TESTING PERFORMED AT [facility]; Analyte ? Result 2019-nCoV ? Not detected Negative results do not preclude 2019-nCoV infection a nd should not be used as the sole basis for treatment or other patient management decisions. ??Negative results must be combined with clinical observations, patient history a nd epidemlogical information. Specimen Performing Organization Address City/State/ZIP Code Phon e Number [facility] [address] [place] [address] documented in this encounter Visit Diagnoses Not on filedocumented in this encounter
--- OUTSIDE RECORDS SUMMARY | 2021-11-28 00:48 | XMS_ITS | Encounter Summary ---
:[address] [facility] Address [address] [place] [address] Care Team Providers Name Role Phone Poly Gasca DNP Primary Care Provider Reason for Visit Reason Onset Date Comments Other 07/31/2021 Encounter Details Date Type Department Care Team Description 07/31/2021 Telephone [facility] Biju Bazzi III, MD Other Vascular Surgery - [address], [address] [place], [place] [address] [place] [phone] (Wo rk) Social History Tobacco Use Types Packs/Day Years Used Date Current Every Day Smoker 1 26 Smokeless Tobacco: Never Used Alcohol Use Standard Drinks/Week Comments Not Currently 0 (1 standard drink = 0.6 oz pure alcoho l) Sex Assigned at Date Recorded Not on file documented as of this encounter Miscellaneous Notes Telephone Encounter - Yahaira Rader RN - 08/01/2021 1108 EST Patient calls the office sharing he was unable to come to appointment yesterday as he had to work late and has an appointment for 08/04 at 9 am Patient shares he has had unna boot on since 07/23. Review of Dr. Bazzi note that patient had Left medial malleolus wound of 1 cm. Shared with patient that unna boot has been on for long duration , recommended he remove and shower,place knee high compression stocking that he is purchasing today and change bandaid over wound dailyuntil reassessment on Wednesday by our SPRAY STAINER. Maintain compression stocking around the clock removing for shower. Patient agrees to plan. elephone Encounter - Yahaira Rader RN - 07/31/2021 1453 EST Attempted to return patients phone call to preferred number [phone]. Patients machine is full and unable to leave message. elephone Encounter - Wanda Wade - 07/31/2021 1342 EST Patient had to cancel- said he just got out of work & can't make it (I did offer him a later time for today but he states he still cannot make it.) I rescheduled for Wednesday, but he requested a nurse call him back at . documented in this encounter Plan of Treatment Not on filedocumented as of this encounter Visit Diagnoses Not on filedocumented in this encounter Care Teams Shell Trim Operator Relationship Specialty Start Date End Date Poly Gasca, CHRISTIAN PCP - General Family Medicine - Primary 09/18/[address] [place] [phone] documented as of this encounter
--- OUTSIDE RECORDS SUMMARY | 2021-11-28 00:48 | XMS_ITS | Clinical Summary ---
:1985 Author Organization [facility] Address [address] [place] [address] Care Team Providers Name Role Phone Poly Gasca Brittany GONZALES Primary Care Provider Allergies No known active allergies Medications Medication Sig Dispensed Refills Start Date End Date Status methadone HCl (METHADONE Take 55 mg by 0 Active ORAL) mouth. hydroCHLOROthiazide Take 1 Tab by 30 Tab 2 11/08/2020 Active (HYDRODIURIL) 25 mg tablet mouth every morning. Additional Information Patient not taking. Reported on 07/23/2021 Active Problems Problem Noted Date Chronic venous insufficiency 01/31/2021 Chronic venous stasis 11/08/2020 Tobacco dependence 11/08/2020 Encounters Date Type Specialty Care Team Description 11/25/2021 Lab Requisition Clinical Laboratory Outr Resulting Lab , Provider 11/25/2021 Lab Requisition Clinical Laboratory Outr Resulting Lab , Provider from Last 3 Months Surgical History Surgery Date Site/Laterality Comments APPENDECTOMY 06/07/2001 - 06/06/2002 Family History Medical History Relation Name Comments Diabetes Father Kidney Disease Father Relation Name Status Comments Father Social History Tobacco Use Types Packs/Day Years Used Date Current Every Day Smoker 1 26 Smokeless Tobacco: Never Used Tobacco Cessation: Ready to Quit: No; Co unseling Given: Yes Alcohol Use Standard Drinks/Week Comments Not Currently 0 (1 standard drink = 0.6 oz pure alcoho l) Sex Assigned at Date Recorded Not on file Last Filed Vital Signs Vital Sign Reading Time Taken Comments Blood Pressure 172/102 07/23/2021 1208 EST Pulse 115 07/23/2021 1208 EST Temperature 37.1 ??C (98.7 ??F) 08/20/2020 1605 EDT Respiratory Rate 22 08/20/2020 1605 EDT Oxygen Saturation 97% 07/23/2021 1208 EST Inhaled Oxygen Concentration - - Weight - - Height - - Body Mass Index - - Plan of Treatment Health Maintenance Due Date Last Done Comments Social Determinants Of Health (SDOH) 1985 COVID-19 Vaccine (#1) 1989 Pneumococcal Immunization (1 - PCV) 1990 Behavioral Health Screen 1996 Advance Directive 2002 Preventive Care Visit 2002 Pertussis (Adult) Immunization 2003 Tetanus (Adult) Immunization 2003 Influenza Immunization (Adult) (Season Ended) 2022 HIV Screening Completed 11/25/2021 Hepatitis C Screen Completed 11/25/2021 Procedures Procedure Name Priority Date/Time Associated Comments Diagnosis HIV 1/2 ANTIGEN AND Routine 11/25/2021 14:36 Resu lts for this ANTIBODY, 4TH EDT procedure are in GENERATION the results section. HEPATITIS B SURFACE Routine 11/25/2021 14:36 Resu lts for this ANTIBODY EDT procedure are i n the results section. HEPATITIS B CORE Routine 11/25/2021 14:36 Results for this ANTIBODY (TOTAL) EDT procedure a re in the results section. HEPATITIS B SURFACE Routine 11/25/2021 14:36 Resu lts for this ANTIGEN EDT procedure are i n the results section. HEPATITIS C AB W Routine 11/25/2021 14:36 Results for this REFLEX TO HCV RNA BY EDT procedu re are in PCR the results section. HEPATITIS A TOTAL Routine 11/25/2021 14:36 Result s for this ANTIBODY W REFLEX EDT procedure are in the results section. from Last 3 Months Results HEPATITIS C AB W REFLEX TO HCV RNA BY PCR (11/25/2021 14:36 EDT) Pathologist Sig nature Hep C Antibody Negative Negative [facility] ORY SERVICES Specimen Blood - Venous blood (substance) Performing Organization Address City/State/ZIP Code Phon e Number [facility] [address] [place] [address] SERVICES HEPATITIS A TOTAL ANTIBODY W REFLEX (11/25/2021 14:36 EDT) Pathologist Sig nature Hepatitis A Antibody, Negative Negative [facility] Total LABORATORY SERVICES Specimen Blood - Venous blood (substance) Narrative [facility] SERVICES - 11/26/2021 10:02 EDT The result of this assay can be falsely elevated (Positive) due to the consumption of Biotin. Performing Organization Address [facility] Code Phon e Number [facility] [address] [place] [address] SERVICES HEPATITIS B CORE ANTIBODY (TOTAL) (11/25/2021 14:36 EDT) Pathologist Sig nature Hepatitis B Core Ab, Negative Negative [facility] Total LABORATORY SERVICES Specimen Blood - Venous blood (substance) Performing Organization Address [facility] Phon e Number [facility] [address] [place] [address] SERVICES HEPATITIS B SURFACE ANTIBODY (11/25/2021 14:36 EDT) Hep B Surface Ab, 411.0 See Note [facility] MEDICAL Quantitative Comment: mIU/mL CENTER LABORATORY Reference Range for Hep B Surface Ab, Quant: SERVICES Positive: >= 10.0 mIU/mL Negative: ??< 10.0 mIU/mL Patient is presumed to be immune to infection with Hep atitis B Virus. Hep B Surface Ab, Positive See Note [facility] Qualitative Comment: CENTER LABORATORY Reference Range for Hep B Surface Ab, Qual: SERVICES Unvaccinated: ??Negative Vaccinated: ??Positive Specimen Blood - Venous blood (substance) Performing Organization Address [facility] Phon e Number [facility] [address] [place] [address] SERVICES HEPATITIS B SURFACE ANTIGEN (11/25/2021 14:36 EDT) Pathologist Sig nature Hep B Surface Ag Negative Negative [facility] SERVICES Specimen Blood - Venous blood (substance) Performing Organization Address [facility] Phon e Number [facility] [address] [place] [address] SERVICES HIV 1/2 ANTIGEN AND ANTIBODY, 4TH GENERATION (11/25/2021 14:36 EDT) HIV 1 and 2 NegativeComment: If Negative [facility] Antibody/p24 acute HIV-1 LABORATORY Antigen, 4th infection is SERVICES Generation suspected in a high risk patient, submit plasma specimen for HIV-1 RNA quantitation test. Specimen Blood - Venous blood (substance) Narrative [facility] SERVICES - 11/26/2021 9:27 EDT Fourth Generation assay performed on the Siemens Centaur XPT. Performing Organization Address City/State/ZIP Code Phon e Number [facility] [address] [place] [address] SERVICES from Last 3 Months Insurance Payer Benefit Plan Subscriber ID Effective Phone Address Typ e / Group Dates MEDICAID ACO MEDICAID ACO [id number] 2021-Pres [phone] [address] Medicaid [place] ent [address] [facility] [id number] Bojorquez,Philchrist Personal/Family Self [address] [place] [address] Bojorquez,Philchrist Personal/Family Self [address] [address] Bojorquez,Philchrist Personal/Family Self 1985 [address] (Home) [place] [address] Care Teams Shrimp Peeling Machine Operator Relationship Specialty Start Date End Date Poly Gasca, CHRISTIAN PCP - General Family Medicine - Primary 09/18/[address] [place] [address] [address] [place] [address]
--- OUTSIDE RECORDS SUMMARY | 2021-11-28 00:48 | XMS_ITS | Encounter Summary ---
:1985 Author Organization [facility] Address [address] [place] [address] Care Team Providers Name Role Phone Poly Gasca DNP Primary Care Provider Reason for Visit Reason Onset Date Comments Appointment Related 07/16/2021 Encounter Details Date Type Department Care Team Description 07/16/2021 Telephone [facility] Biju Bazzi III, MD Appointment Related Vascular Surgery - [address] [place] [address], [address], [address] [place], [place] [address] [place] [address] [phone] (Wo rk) Social History Tobacco Use Types Packs/Day Years Used Date Current Every Day Smoker 1 26 Smokeless Tobacco: Never Used Alcohol Use Standard Drinks/Week Comments Not Currently 0 (1 standard drink = 0.6 oz pure alcoho l) Sex Assigned at Date Recorded Not on file documented as of this encounter Miscellaneous Notes Telephone Encounter - Perla Moses RN - 07/16/2021 4200 EST Returned call to patient- who reports that he scratched his left leg and dug around in it- last week- he c/o some extra edema at that time and small amount of purulent drainage from the scabbed area-He states that edema has reduced- no fevers at this time, though the other day he did have a fitful, sweaty night- but denies fever at this time. States he has two scabbed areas now- no s/s infection- Will have [facility] call for sooner appt than August when he is due to see us. Instructed him to monitor for s/s infection in the meantime and let us know if wound worsens. PERLA MOSES RN 07/16/2021 14:16 elephone Encounter - Mell Carmichael - 07/16/2021 1232 EST Patient called in to report that he got a small cut/wound on his leg. He states that his vascular doctor previously told him to call in if he got any new wounds. Patient reports it started as a small cut and then got bigger as he messed with it. He reports it is now healing well and there is a scab formed. He touched it recently and reports some puss came outof his leg which he worries is not good. documented in this encounter Plan of Treatment Not on filedocumented as of this encounter Visit Diagnoses Not on filedocumented in this encounter Care Teams Water Fitness Instructor Relationship Specialty Start Date End Date Poly Gasca, CHRISTIAN PCP - General Family Medicine - Primary 09/18/[address] [place] [phone] documented as of this encounter
--- OUTSIDE RECORDS SUMMARY | 2021-11-28 00:48 | XMS_ITS | Encounter Summary ---
:1985 Author Organization [facility] Address [address] [place] [address] Care Team Providers Name Role Phone Poly Gasca Brittany GONZALES Primary Care Provider Encounter Details Date Type Department Care Team Description 11/25/2021 Lab Requisition [facility] Center Outr Resulting Lab, Pathology & Laboratory Provider [facility] [address] [id number] Social History Tobacco Use Types Packs/Day Years Used Date Never Assessed Sex Assigned at Date Recorded Not on file documented as of this encounter Plan of Treatment Not on filedocumented as of this encounter Procedures Procedure Name Priority Date/Time Associated Diagnosis Comme nts HEPATITIS C AB W Routine 11/25/2021 14:36 Results for this REFLEX TO HCV RNA EDT procedure are in BY PCR the results section. HEPATITIS A TOTAL Routine 11/25/2021 14:36 Result s for this ANTIBODY W REFLEX EDT procedure are in the results section. HEPATITIS B CORE Routine 11/25/2021 14:36 Results for this ANTIBODY (TOTAL) EDT procedure a re in the results section. HEPATITIS B SURFACE Routine 11/25/2021 14:36 Resu lts for this ANTIBODY EDT procedure are i n the results section. HEPATITIS B SURFACE Routine 11/25/2021 14:36 Resu lts for this ANTIGEN EDT procedure are i n the results section. documented in this encounter Results HEPATITIS B SURFACE ANTIBODY (11/25/2021 14:36 EDT) Hep B Surface Ab, 411.0 See Note [facility] Quantitative Comment: mIU/mL [facility] Reference Range for Hep B Surface Ab, Quant: SERVICES Positive: >= 10.0 mIU/mL Negative: ??< 10.0 mIU/mL Patient is presumed to be immune to infection with Hep atitis B Virus. Hep B Surface Ab, Positive See Note [facility] Qualitative Comment: [facility] Reference Range for Hep B Surface Ab, Qual: SERVICES Unvaccinated: ??Negative Vaccinated: ??Positive Specimen Blood - Venous blood (substance) Performing Organization Address [facility] Phon e Number [facility] [address] [place] [address] SERVICES HEPATITIS B CORE ANTIBODY (TOTAL) (11/25/2021 14:36 EDT) Pathologist Sig nature Hepatitis B Core Ab, Negative Negative [facility] Total LABORATORY SERVICES Specimen Blood - Venous blood (substance) Performing Organization Address [facility]/ZIP [facility] Phon e Number [facility] [address] [place] [address] SERVICES HEPATITIS B SURFACE ANTIGEN (11/25/2021 14:36 EDT) Pathologist Sig nature Hep B Surface Ag Negative Negative [facility] SERVICES Specimen Blood - Venous blood (substance) Performing Organization Address [facility]/ZIP [facility] Phon e Number [facility] [address] [place] [address] SERVICES HEPATITIS C AB W REFLEX TO HCV RNA BY PCR (11/25/2021 14:36 EDT) Pathologist Sig nature Hep C Antibody Negative Negative [facility] ORY SERVICES Specimen Blood - Venous blood (substance) Performing Organization Address [facility]/ZIP [facility] Phon e Number [facility] [address] [place] [address] SERVICES HEPATITIS A TOTAL ANTIBODY W REFLEX (11/25/2021 14:36 EDT) Pathologist Sig nature Hepatitis A Antibody, Negative Negative [facility] Total LABORATORY SERVICES Specimen Blood - Venous blood (substance) Narrative [facility] SERVICES - 11/26/2021 10:02 EDT The result of this assay can be falsely elevated (Positive) due to the consumption of Biotin. Performing Organization Address [facility]/ZIP Code Phon e Number [facility] [address] [place] [address] SERVICES documented in this encounter Visit Diagnoses Not on filedocumented in this encounter Care Teams Signalling And Communications Engineer Relationship Specialty Start Date End Date Poly Gasca, DNP PCP - General Family Medicine - Primary 09/18/[address] [place] [address] [address] [place] [phone] documented as of this encounter
--- OUTSIDE RECORDS SUMMARY | 2021-11-28 00:48 | XMS_ITS | Encounter Summary ---
:1985 Author Organization [facility] Address [address] [place] [address] Care Team Providers Name Role Phone Unavailable Primary Care Provider Unavailable Reason for Visit Reason Onset Date Comments Paperwork request 07/30/2020 Need to confirm [facility] mailing address for [employer] paperwork Encounter Details Date Type Department Care Team Description 07/30/2020 Telephone [facility] - Poly Gasca Pa perwork request (Need [facility] Family Medicine - DNP to confirm current [place] [address] [employer] [facility] mailing address for [employer] OPER[employer] [address] [place] [address], [address] paperwork) [place] [address] [place], [place] [phone] (Wo rk) Social History Tobacco Use Types Packs/Day Years Used Date Never Assessed Sex Assigned at Date Recorded Not on file documented as of this encounter Miscellaneous Notes Telephone Encounter - Jaquelin Torres - 08/01/2020 1023 EST Pt called back, verified info and mailed new patient paperwork. elephone Encounter - Kay Castaneda - 07/31/2020 1514 EST LM #2 for patient to call to confirm info on file. When he calls please confirm phone number, mailing address, etc. elephone Encounter - Kay Castaneda - 07/30/2020 1645 EST LM for patient to call office back from number on file. E is new to the area, was seen at [facility] ED and assigned Dennis Navarrete as new provider. Unfortunately Landon is leaving at the end of this month. I set Chris up to est care with Elo in September. I forgot to verify current mailing address for [employer] O[employer] paperwork.When he calls please verify info on file, address, contact numbers, pharmacy, etc. documented in this encounter Plan of Treatment Not on filedocumented as of this encounter Visit Diagnoses Not on filedocumented in this encounter
--- OUTSIDE RECORDS SUMMARY | 2021-11-28 00:49 | XMS_ITS | Encounter Summary ---
:1985 Author Organization [facility] Address [address] [place] [address] Care Team Providers Name Role Phone Unavailable Primary Care Provider Unavailable Reason for Visit Reason Comments COVID-19 Encounter Details Date Type Department Care Team Description 03/27/2020 Office Visit [facility] Mobile Scre ening for viral [facility] Testing disease (Prim jeyson Dx) [facility] - Mobile Testing Department [address] [place] [address] Social History Tobacco Use Types Packs/Day Years Used Date Never Assessed Sex Assigned at Date Recorded Not on file documented as of this encounter Progress Notes Jacqueline Ma - 03/27/2020 1530 EDT SWABBED BY SANTA RN documented in this encounter Plan of Treatment Not on filedocumented as of this encounter Visit Diagnoses Diagnosis Screening for viral disease - Primary Special screening examination for unspec ified viral disease documented in this encounter
--- OUTSIDE RECORDS SUMMARY | 2021-11-28 00:49 | XMS_ITS | Encounter Summary ---
:1985 Author Organization [facility] Address [address] [place] [address] Care Team Providers Name Role Phone Unavailable Primary Care Provider Unavailable Reason for Visit Reason Onset Date Comments Other 03/27/2020 Covid call center Encounter Details Date Type Department Care Team Description 03/27/2020 Telephone [facility], Provider Other (C ovid call center) [facility] - Mobile Testing Department [address] [place] [address] Social History Tobacco Use Types Packs/Day Years Used Date Never Assessed Sex Assigned at Date Recorded Not on file documented as of this encounter Miscellaneous Notes Telephone Encounter - Betty Miller PA-C - 03/27/2020 1437 EDT Ordered Telephone Encounter - Kevyn Gold - 03/27/2020 1423 EDT ..Asymptomatic testing requested. ..C-19 screening recommended by provider. Routed for testing ordering. Mary Jo Chris Cece Bojorquez Cell #: [phone] Spoke to patient and verbally gave instructions for Testing Facility. Patient is instructed to be there at 3:30 pm sharp. documented in this encounter Plan of Treatment Not on filedocumented as of this encounter Visit Diagnoses Diagnosis Laboratory test - Primary Laboratory examination, unspecified documented in this encounter
--- NOTE | 2021-11-28 07:45 | DI.RAD_ITS ---
Exam(s) XR KNEE LT 3V AP,LAT,ANISHA EXAM: XR KNEE LT 3V AP,LAT,ANISHA CLINICAL HISTORY: Chronic knee pain,ARTHRITIS,M17.12. TECHNIQUE: 2D digital imaging was performed of the left knee. Four images were obtained. AP, later al and PA tunnel views were obtained. COMPARISON: No exams were available for comparison FINDINGS: BONES: No acute fracture is present. No bony destructive lesion is seen. JOINTS: The knee is normally aligned. No joint effusion is seen. Mild degenerative changes are seen w ith periarticular spurring in all 3 joint compartments. There is mild narrowing of the lateral femor al tibial joint. SOFT TISSUE: Normal. IMPRESSION: Mild osteoarthritis of the knee. DATA REPOSITORY: RADIATION DOSE DELIVERED:
== END ==
PROVIDERS: PCP Family Medicine; Visit Provider Family Medicine
DX: M25.562 Pain in left knee (principal); M17.12 Unilateral primary osteoarthritis, left knee
CPT/HCPCS: 73562

== ENCOUNTER 2021-12-15 03:07 | Outpatient (CLI) | payer MEDICAID, SELFPAY | END 2021-12-15 03:08 | disposition home or self-care (01) | LOC: LBO 03:07 | PROVIDERS: PCP Family Medicine; Referring Provider Family Medicine; Visit Provider Family Medicine ==

== ENCOUNTER → 2022-01-14 01:24 | Outpatient (CLI) | payer MEDICAID, SELFPAY ==
--- NOTE | 2022-01-14 07:15 | DI.MRI_ITS ---
Exam(s) MR LOWER JOINT LT WO EXAM: MR LOWER JOINT LT WO CLINICAL HISTORY: L KNEE PAIN,internal derangement, m23.92 TECHNIQUE: Multiplanar multisequence MRI was performed.. COMPARISON: CR XR KNEE LT 3V AP,LAT,ANISHA from 11/28/2021 FINDINGS: MR examination of the knee was performed according to the usual protocol. The examination was technically limited due to the choice of knee coils available with the patient's body habitus. There is a small knee joint effusion. No significant bony signal abnormality seen. There are small marginal osteophytes at tibial femoral joints. Medial tibiofemoral joint: The articular cartilage of the femur and tibia appears thinned, with no de finite focal articular cartilage defects. The meniscus and attachments appear intact. The medial co llateral ligament appears intact. No posteromedial corner injury seen. Lateral tibiofemoral joint: The articular cartilage of the femur and tibia appears moderately thinned , with cartilage defect about 1.5 cm in diameter seen posterolaterally.. There is a complex tear of the lateral meniscus involving body and posterior horn with some loss of meniscal substance period th ere is mild peripheral displacement the body meniscus period. The lateral collateral ligament comple x and posterolateral corner structures appear intact, except for an apparent chronic tear of the myot endinous junction of the popliteus. There is no retraction of the popliteus tendon.. Patellofemoral joint and extensor mechanism: The articular cartilage of the patellofemoral joint appe ars thinned, focal areas of cartilage loss are present particularly inferiorly, but poorly seen due t o the limitations of the study. Mildly abnormal signal of inferior patellar marrow noted. The super ior and inferior patellar fat pads show nonspecific mildly abnormal signal period. The quadriceps tendon and patellar tendon appear intact with no evidence of a tear or significant lalito ma. The medial and lateral retinacula appear intact. Cruciate ligaments: Cruciate ligaments and attachments appear normal with no evidence of a tear. Tibiofibular joint: No specific abnormality involving the tibiofibular joint. IMPRESSION: Degenerative changes as described above involving articular cartilage of all 3 joints. Complex lateral meniscal tear noted. 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 DATA REPOSITORY:
== END ==
PROVIDERS: PCP Family Medicine; Visit Provider Student in an Organized Health Care Education/Training Program
DX: S83.272A Complex tear of lateral meniscus, current injury, left knee, initial encounter (principal); M17.12 Unilateral primary osteoarthritis, left knee; X58.XXXA Exposure to other specified factors, initial encounter
CPT/HCPCS: 73721